=== PATIENT | male | born 1975 | race Caucasian/White ===

== ENCOUNTER 2016-09-10 17:09 | Emergency (ER) | payer SELFPAY ==
[~2016-09-10] VITALS: Ht 185.4 cm; Wt 99.0 kg
[~2016-09-10 17:09] MED LIST: DOXY100T PO; MOME17I; TEST-25 IM; ZOLP10TA3 OR
[2016-09-10 17:11] VITALS: BP 146/82; PULSE 95; RESP 16; TEMP 98.4; O2SAT 95
[2016-09-10] MEDS ORDERED: LIPI10TA PO (17:22)
[2016-09-10] MEDS ORDERED: TEST1INJ3 IM (17:22)
--- NOTE | 2016-09-10 17:25 | PD ---
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 Patient states that he noticed the bruising this morning. He states that he was working out yesterday doing bench presses with around 230 pounds which she states is "easy" for him. 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 He denies numbness, tingling, weakness, limitation of range of motion or loss of strength of the extremity. He's never injured the area before. Denies chronic health problems and takes no daily medications. PFSH Past Medical History Cancer: No High Cholesterol: Yes Diabetes: No Diminished Hearing: No Hepatitis: No Hiatal Hernia: No Reproductive: Yes (low testosterone) Thyroid Disease: No Past Surgical History Pacemaker: No Other Surgery: Yes Social History Alcohol Use: Yes ("couple times per week") Tobacco Use: No Substance Use: No Allergies-Medications (Allergen,Severity, Reaction): Coded Allergies: Penicillin (Verified Allergy, Severe, HIVES, 09/10/16) Reported Meds & Prescriptions Reported Meds & Active Scripts Active Naprosyn (Naproxen) 500 Mg Tab 500 Mg PO BID Reported Testosterone Cypionate Inj (Testosterone Cypionate) 100 Mg/Ml Inj 100 Mg IM DIRECTED Lipitor (Atorvastatin Calcium) 10 Mg Tab 10 Mg PO HS Review of Systems Except as stated in HPI: all other systems reviewed are Neg Physical Exam Narrative GENERAL: Well-nourished, well-developed patient. SKIN: Focused skin assessment warm/dry. HEAD: Normocephalic. EYES: No scleral icterus. No injection or drainage. NECK: Supple, trachea midline. No JVD or lymphadenopathy. CARDIOVASCULAR: Regular rate and rhythm without murmurs, gallops, or rubs. RESPIRATORY: Breath sounds equal bilaterally. No accessory muscle use. GASTROINTESTINAL: Abdomen soft, non-tender, nondistended. MUSCULOSKELETAL: No cyanosis, or edema. FOCUSED RIGHT UPPER EXTREMITY EXAM: 2+ radial pulse. There is ecchymosis, mild edema and tenderness to palpation over the medial epicondyle. No pain elicited with resisted flexion of the digits or wrist. 5/5 strength of the biceps and triceps. Patient retains full, active, painless ROM including pronation and supination. Sensation intact to light touch distally. Cap refill less than 2 seconds. BACK: Nontender without obvious deformity. No CVA tenderness. 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 Patient states that he noticed the bruising this morning. He states that he was working out yesterday doing bench presses with around 230 pounds which she states is "easy" for him. 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 He denies numbness, tingling, weakness, limitation of range of motion or loss of strength of the extremity. Vitals reviewed. Physical exam reveals ecchymosis, edema and point tenderness at the medial condyle of the right elbow. Resisted flexion of the digits and the wrist elicits no pain at the medial condyle. 5/5 strength in all muscle groups of the upper extremity. X-ray reveals no acute bony injury. I suspect this is strain of the right elbow, possible internal derangement. Patient was instructed to rest, ice, elevate, compress the elbow, return to normal, gentle activity as tolerated, follow-up with the orthopedist. He was cautioned to avoid lifting weights or overuse of the arm for the next 7-10 days. He was prescribed a short course of anti-inflammatories. He indicated understanding the instructions and is agreeable a care plan. He is stable and discharged home. Diagnosis Primary Impression: Right elbow pain Additional Impression: Strain of right elbow Qualified Code: S56.911A - Strain of right elbow, initial encounter Referrals: Orthopedist Patient Instructions: Elbow Sprain (ED), General Instructions Additional Instructions: Rest, ice, elevate the extremity. Apply ice no longer than 10-15 minutes per hour a few times a day. 500 mg naproxen twice a day to reduce pain and inflammation. Return to normal, gentle activity as tolerated. No heavy weight lifting or overuse for the next week. Follow up with orthopedist or your primary care provider. Return to the ED for any urgent or emergent medical condition. Scripts Naproxen (Naprosyn)500 Mg [id number] Mg PO BID #14 TAB Ref 0 Prov:Raphael Roach MD 09/10/16 Disposition: 01 DISCHARGE HOME Condition: Stable Salud Arguello Sep 10, 2016 17:25
--- NOTE | 2016-09-10 19:48 | RADRPT ---
EXAM DATE/TIME: 09/10/2016 18:28 [facility] COMPARISON: No previous studies available for comparison. INDICATIONS : Right elbow pain. MEDICAL HISTORY : None. SURGICAL HISTORY : None. ENCOUNTER: Initial ACUITY: 3 days PAIN SCORE: 4/10 LOCATION: Right elbow. FINDINGS: Multiple view examination of the right elbow demonstrates no soft tissue swelling, joint effusion, or fracture. The osseous structures are in normal alignment. Bony mineralization is normal. CONCLUSION: No evidence of recent bony injury. Slava Khan MD on September 10, 2016 at 19:45 Board Certified Radiologist. This report was verified electronically.
[2016-09-10] MEDS ORDERED: NAPR500 PO (19:49)
== END 2016-09-10 20:05 | disposition home or self-care (01) ==
LOC: PHEFT 17:09
DX: E78.00 Pure hypercholesterolemia, unspecified (principal); X50.3XXA Overexertion from repetitive movements, initial encounter; Y92.838 Other recreation area as the place of occurrence of the external cause; Y93.B9 Activity, other involving muscle strengthening exercises
CPT/HCPCS: 73080; 99283

== ENCOUNTER 2017-08-18 21:10 | Emergency (ER) | payer BC ==
[~2017-08-18] VITALS: Ht 185.4 cm; Wt 98.5 kg
[~2017-08-18 21:10] MED LIST changes: -DOXY100T PO; +LIPI10TA PO; -MOME17I; +NAPR500 PO; -TEST-25 IM; +TEST1INJ3 IM; -ZOLP10TA3 OR
[2017-08-18 21:13] VITALS: BP 139/86; PULSE 81; RESP 18; TEMP 97.9; O2SAT 96
--- NOTE | 2017-08-18 21:33 | PD ---
HPI Chief Complaint: Injury Time Seen by Provider: 21:26 Travel History International Travel<30 days: No Contact w/Intl Traveler<30days: No Traveled to known affect area: No History of Present Illness HPI 42-year-old right-handed male presents to the emergency department by private transportation for evaluation of injury to the right hand. Patient reports approximately 12 noon today while playing some pickup football he was attempting to catch a thrown football and fell backwards landing on his right outstretched hand. Patient did not notice immediate pain but subsequently has noticed significant soft tissue swelling to the thumb area and hand. Patient states that he feels like he has some weakness with use of the thumb but does not report any decreased range of motion of the digit. Patient is right- handed. Patient is not taking any blood thinning agents. Patient reports his pain 7/10 intensity. Patient does not report any alleviating factors and reports that after attempting to use his hand to the pusher using he causes increased pain. PFSH Past Medical History Narrative Medical Dyslipidemia low testosterone occasional alcohol use; nursing notes reviewed Cancer: No High Cholesterol: Yes Diabetes: No Diminished Hearing: No Hepatitis: No Hiatal Hernia: No Reproductive: Yes (low testosterone) Immunizations Current: Yes Thyroid Disease: No Tetanus Vaccination: < 5 Years Influenza Vaccination: No Past Surgical History Surgical History: No Previous Surgery Pacemaker: No Other Surgery: Yes Social History Alcohol Use: Yes (Occ.) Tobacco Use: No Substance Use: No Allergies-Medications (Allergen,Severity, Reaction): Coded Allergies: penicillin G (Unverified Allergy, Severe, HIVES, 08/18/17) Reported Meds & Prescriptions Reported Meds & Active Scripts Active Percocet (Oxycodone-Acetaminophen) 5-325 mg Tab 1 Tab PO Q6H PRN Reported Testosterone Cypionate Inj (Testosterone Cypionate) 100 Mg/Ml Inj 100 Mg IM DIRECTED Lipitor (Atorvastatin Calcium) 10 Mg Tab 10 Mg PO HS Review of Systems Except as stated in HPI: all other systems reviewed are Neg Physical Exam Narrative GENERAL: Well-developed well-nourished male no acute distress no respiratory distress SKIN: Warm and dry. MUSCULOSKELETAL: No cyanosis, or edema. Extremity/hand focused exam marked soft tissue swelling of the thenar eminence with brisk capillary refill to each digit; intact thumb apposition; some mild deformity of the thumb at the first MCP but has intact IP range of motion proximally in the wrist appears to be nontender no deformity radial ulnar pulses are 2+ to palpation; sensory exam is intact. Data Data Last Documented VS Vital Signs Date Time Temp Pulse Resp B/P (MAP) Pulse Ox O2 Delivery O2 Flow Rate FiO2 08/18/17 21:13 97.9 81 18 139/86 (103) 96 Orders Orders Hand, Complete ([id number]) (08/18/17 ) Ice/Cold Pack (08/18/17 21:26) Splint Or Brace Apply/Monitor (08/18/17 22:07) Ed Discharge Order (08/18/17 22:15) Ibuprofen (Motrin) (08/18/17 22:30) MDM Medical Decision Making Medical Screen Exam Complete: Yes Emergency Medical Condition: Yes Medical Record Reviewed: Yes Interpretation(s) right hand xr: FINDINGS: There is a mildly displaced fracture through the proximal first metacarpal. No dislocation. No other fractures are seen. CONCLUSION: Mildly displaced fracture proximal first metacarpal. Electronically signed by: Jose Diamond MD 08/18/2017 9:57 PM EDT Differential Diagnosis Sprain strain subluxation dislocation fracture compartment syndrome Narrative Course Patient with injury to the right hand imaging study ordered ice pack applied Imaging study resulted patient has a proximal first medical carpal fracture with mildly displacement without joint involvement no subluxation or dislocation ; thumb spica splint applied and call placed to hand surgeon Physician Communication Physician Communication call placed to hand surgeon, Dr Colorado Diagnosis Primary Impression: Displaced fracture of metacarpal bone of right hand Referrals: Garrett Colorado MD 1 day call office in the AM for 1 day follow up in the office Patient Instructions: General Instructions Additional Instructions: Wear splint Elevate right hand Follow up with Hand Surgeon Dr Colorado x 1 day 08/19/17--call office in a.m. to schedule appointment -- follow-up of in 1 day No work x 1 day; no use right hand until Hand Surgeon evaluation Apply ice intermittently to right hand for first 12-24 hours Return to the emergency department for concerns or change in condition May use ibuprofen 600 mg as often as every 6 hours or 800 mg as often as every 8 hours as needed for pain associated with inflammation May take pain medication as prescribed as needed for pain greater than 5/10 intensity Med/Other Pt SpecificInfo: Prescription(s) given Scripts Oxycodone-Acetaminophen (Percocet) 5-325 mg Tab 1 TAB PO Q6H Y for PAIN, #6 TAB 0 Refills Prov: Maryjo Quevedo MD 08/18/17 Disposition: 01 DISCHARGE HOME Condition: Stable Maryjo Quevedo MD Aug 18, 2017 21:33
--- NOTE | 2017-08-18 21:58 | RADRPT ---
EXAM DATE: 08/18/2017 9:44 PM EDT AGE/SEX: 42 years / Male INDICATIONS: Pain and swelling to right hand, 1st metacarpal, after falling backwards and catching s elf with right hand today. CLINICAL DATA: This is the patient's initial encounter. Patient reports that signs and symptoms have been present for 1 day and indicates a pain score of 7/10. MEDICAL/SURGICAL HISTORY: None. None. COMPARISON: No prior exams available for comparison. FINDINGS: There is a mildly displaced fracture through the proximal first metacarpal. No dislocation. No other fractures are seen. CONCLUSION: Mildly displaced fracture proximal first metacarpal. Electronically signed by: Jose Diamond MD 08/18/2017 9:57 PM EDT
[2017-08-18] MEDS ORDERED: PERC5TAB12 PO ×2 (22:19→22:22)
[2017-08-18] MEDS ORDERED: IBUPROFEN 800 MG TAB PO ONE (22:30)
== END 2017-08-18 22:32 | disposition home or self-care (01) ==
LOC: PHEFT 21:10
DX: S62.91XA Unspecified fracture of right hand, initial encounter for closed fracture (principal); E78.00 Pure hypercholesterolemia, unspecified; Z88.0 Allergy status to penicillin; W21.01XA Struck by football, initial encounter; Y93.61 Activity, american tackle football
CPT/HCPCS: 73130; 99283; L3808